=== PATIENT | female | born 1955 | race Caucasian/White ===

== ENCOUNTER 2017-02-13 13:46 | Emergency (ER) | payer SELFPAY ==
[~2017-02-13] VITALS: Ht 157.5 cm; Wt 76.0 kg
[2017-02-13 13:48] VITALS: Ht 157.5 cm; Wt 76.0 kg
[2017-02-13] MEDS ORDERED: AMOX1TAB10 PO (15:16)
--- NOTE | 2017-02-13 15:16 | ERD ---
ER Documentation Chief Complaint Date/Time DATE: 02/13/17 Chief Complaint Sinus pressure, Right ear discomfort, Nasal congestion, Sore throat HPI The patient is a 61-year-old female who presents to the Emergency Department with complete of frontal sinus pressure-like pain, nasal congestion, sore throat , ear pain and mild cough. The patient reports that approximately one month ago she developed symptoms of cough, rhinorrhea and nasal congestion. After onset of her symptoms, she was evaluated by her primary medical provider, and was advised that her symptoms were likely secondary to "allergies". Since, she has been taking Loratadine, with no significant relief. Over the past week, she has noted worsening of her symptoms, with onset of purulent rhinorrhea, right ear discomfort, worsening sore throat and a pressure-like pain over the frontal region of her forehead. The pain is somewhat worse with palpation an upon leaning her head over. She denies any hearing changes, vomiting, neck pain, neck stiffness, fevers, sweats, chills, or new rashes. Denies any sick contacts with similar symptoms. ROS All systems reviewed and are negative except as per history of present illness. Medications Home Meds Active Scripts Ibuprofen* (Motrin*) 600 Mg Tab, 600 MG PO Q6, #20 TAB Prov:LUZ BARNEY PA-C 02/13/17 Pseudoephedrine Hcl (Sudafed 12 Hour) 120 Mg Tablet.sa, 120 MG PO BID, #30 Prov:LUZ BARNEY PA-C 02/13/17 Amoxicillin/Potassium Clav (Amox-Clav 875-125 mg Tablet) 875-125 mg Tab, 1 TAB PO BID for 7 Days, #14 TAB Prov:LUZ BARNEY PA-C 02/13/17 Allergies Allergies: Coded Allergies: No Known Allergy (Unverified , 02/13/17) PMhx/Soc Medical and Surgical Hx: pt denies Medical Hx, pt denies Surgical Hx History of Surgery: No Anesthesia Reaction: No Hx Neurological Disorder: No Hx Respiratory Disorders: No Hx Cardiac Disorders: No Hx Psychiatric Problems: No Hx Miscellaneous Medical Probl: No Hx Alcohol Use: No Hx Substance Use: No Hx Tobacco Use: No Smoking Status: Never smoker Physical Exam Vitals Vital Signs Date Time Temp Pulse Resp B/P Pulse Ox O2 Delivery O2 Flow Rate FiO2 02/13/17 16:43 98.4 75 19 138/78 100 Room Air 02/13/17 13:48 98.3 94 20 125/60 99 Physical Exam GENERAL: Well-developed, well-nourished, in no acute distress HEENT: Head is normocephalic, atraumatic. Tenderness to palpation and percussion over frontal sinus. No maxillary sinus tenderness. No scleral pallor or icterus. Pupils equal, round and reactive to light. No injection. No discharge. Extraocular movements intact. Conjunctiva pink. Purulent rhinorrhea. Right tympanic membrane is slightly bulging with fluid noted, though no erythema noted. Left tympanic membrane is clear with no erythema, effusion or dulling of the light reflex. Moist mucous membranes. No pharyngeal exudates. Mild erythema of posterior pharynx. Postnasal drip. Uvula is midline. NECK: Supple. No masses, no tenderness, no lymphadenopathy. Trachea midline. No nuchal rigidity. Full range of motion. RESPIRATORY: Lungs are clear to auscultation bilaterally. No rales, rhonchi or wheezing. Equal breath sounds. Normal expiratory effort. CARDIOVASCULAR: Regular rate and rhythm. S1 and S2 normal. No murmurs, rubs, or gallops. GASTROINTESTINAL: Abdomen is soft, nontender, and nondistended. EXTREMITIES: No clubbing, cyanosis, or edema. Normal skin perfusion. Full range of motion of both the upper and lower extremities bilaterally. Muscle tone is normal. No focal swelling or erythema. Distal pulses are palpable, 2+ bilaterally. Capillary refill is less than 2 seconds. NEUROLOGIC: The patient is alert, awake, and oriented x 3. INTEGUMENT: Skin is clean, dry and intact. No rashes, lesions or petechiae present. PSYCHIATRIC: Appropriate; Cooperative. Procedures/MDM This is a 61-year-old female presenting to the Emergency Department complaining of frontal pressure-like head pain, purulent rhinorrhea, nasal congestion, mild cough and sore throat. On physical examination, she had tenderness to palpation and percussion over the frontal sinus. Purulent mucoid nasal discharge noted. Posterior pharynx was mildly erythematous with postnasal drip. Otherwise, no exudates or palatal petechiae. She exhibited no altered mental status, neurologic deficits or meningeal signs. She was afebrile, with no tachycardia, no tachypnea, no signs of respiratory distress. She had a normal O2 saturation on room air. Her lungs were clear to auscultation, with no rales, rhonchi or wheezing. The differential diagnosis includes, but is not limited to, subarachnoid hemorrhage, intracerebral bleeding, cerebral aneurysm, meningitis, encephalitis, brain abscess, stroke, tumor, sinusitis, migraine headache, tension headache, glaucoma, cluster headache, pseudotumor cerebri, encephalopathy, upper respiratory infection, sepsis, otitis media, pneumonia, pertussis, pharyngitis, bronchitis, influenza. No evidence of acute sepsis, bacteremia, dehydration, meningitis, or other life-threatening etiology. Her condition remained stable and appropriate during her stay. After rest, the patient reports no new complaints. Upon my review and interpretation of the patient's presentation and overall ER course, I believe the patient's symptoms are most consistent with acute frontal sinusitis. The patient is well-appearing. She had no physical examination evidence of pneumonia. Patient's neck was supple, with no altered mental status , and therefore I doubt meningitis. Oropharynx was clear, with no exudates, petechiae, no associated anterior cervical lymphadenopathy, and therefore I doubt streptococcal pharyngitis. Uvula midline, no brawny induration, no trismus , no stridor, no submandibular swelling, no evidence of peritonsillar abscess, retropharyngeal abscess or Antoine's angina. Tympanic membranes were clear bilaterally, with no erythema or significant bulging noted, and therefore I doubt otitis media. Her abdomen was soft, non-tender and non-distended. No guarding, no rebound tenderness, no gross peritonitis. No evidence of acute/ surgical abdomen. At this time, the patient is in stable condition and she is not experiencing any signs of distress, and therefore she can be discharged home with a prescription for Augmentin, Sudafed and Ibuprofen, and strict return precautions for signs of deteriorating or worsening condition. The patient is advised to follow up with her primary care provider for reevaluation and further management within 2-3 days, or return to the ER sooner for any worsening symptoms. I shared my medical decision making and plan with the patient at length and in great detail, and she verbally understands and agrees with the plan for further observation and care as an outpatient. At the time of discharge, all questions were answered. Departure Diagnosis: Primary Impression: Acute frontal sinusitis Recurrence: not specified as recurrent Qualified Code: J01.10 - Acute frontal sinusitis, recurrence not specified Condition: Stable Patient Instructions: Acute Sinusitis, Sinusitis, Abx Tx Additional Instructions: Call your primary care doctor TOMORROW for an appointment during the next 2-3 days.See the doctor sooner or return here if your condition worsens before your appointment time. LUZ BARNEY PA-C Feb 13, 2017 15:16
[2017-02-13] MEDS ORDERED: IBUP-1542 PO (15:17)
[2017-02-13] MEDS ORDERED: PSEU120T51 PO (15:17)
[2017-02-13 16:43] VITALS: BP 138/78; PULSE 75; RESP 19; TEMP 98.4
== END 2017-02-13 16:43 | disposition home or self-care (01) ==
LOC: FTE 13:46
DX: J01.10 Acute frontal sinusitis, unspecified (principal)
CPT/HCPCS: 99283